=== PATIENT | male | born 1975 | race Hispanic/Latino ===

== ENCOUNTER 2018-06-22 12:11 | Inpatient (IN) | payer OTHER ==
[~2018-06-22] VITALS: Ht 185.4 cm; Wt 122.7 kg
[2018-06-22] MEDS ORDERED: SODIUM CHLORIDE 0.9% 1000ML 1,000 ML IV STA ×2 (12:50→13:59)
[2018-06-22] MEDS ORDERED: LABETALOL HCL 5 MG/ML 20ML VIAL IV STA (12:50)
[2018-06-22 13:34] LABS: BASOPHILS % 0.3 % (0.0-1.0); EOSINOPHILS % 0.2 % (0.0-6.0); HEMATOCRIT 60.7 % (38.2-49.6); HEMOGLOBIN 20.9 g/dL (14.0-18.0); LYMPHOCYTES # (AUTO) 1.7 (1.0-3.2); MEAN CORPUSCULAR HEMOGLOBIN 33.3 pg (28-32); MEAN CORPUSCULAR HGB CONC 34.4 g/dL (31-35); MEAN CORPUSCULAR VOLUME 96.8 fL (81-99); MONOCYTES # (AUTO) 0.8 (0.2-0.8); MONOCYTES % 6.1 % (4.4-11.3); NEUTROPHILS # (AUTO) 9.7 (2.1-6.9); NEUTROPHILS % 78.8 % (38.7-80.0); PLATELET COUNT 146 x10e3/uL (140-360); RED BLOOD COUNT 6.27 x10e6/uL (4.3-5.7); RED CELL DISTRIBUTION WIDTH 12.6 % (11.7-14.4)
[2018-06-22 13:34] LABS: CLARITY,URINE SL CLOUDY (CLEAR); COLOR,URINE STRAW (YELLOW); LEUKOCYTE ESTERASE ,URINE NEGATIVE (NEGATIVE)
[2018-06-22 13:35] LABS: BILIRUBIN,URINE 1+ (NEGATIVE); KETONES,URINE TRACE (NEGATIVE); NITRITE,URINE NEGATIVE (NEGATIVE); PROTEIN,URINE DIPSTICK 1+ (NEGATIVE); URINE UROBILINOGEN 0.2 mg/dL (0.2 - 1)
[2018-06-22 13:40] LABS: PARTIAL THROMBOPLASTIN TIME 30.1 seconds (23.8-35.5)
[2018-06-22 13:44] LABS: INR 1.01; PROTHROMBIN TIME 13.8 seconds (11.9-14.5)
[2018-06-22 13:45] LABS: AMORPHOUS SEDIMENT,URINE MODERATE (FEW); BACTERIA,URINE MODERATE /HPF; EPITHELIAL CELLS,URINE FEW /LPF; MUCUS,URINE MODERATE (RARE)
[2018-06-22 13:51] LABS: ALANINE AMINOTRANSFERASE 31 IU/L (0-55); ALBUMIN 4.5 g/dL (3.5-5.0); ALKALINE PHOSPHATASE 89 IU/L (40-150); BLOOD UREA NITROGEN 7 mg/dL (7-26); BUN/CREATININE RATIO 5 (6-25); CALCIUM 10.5 mg/dL (8.4-10.2); CARBON DIOXIDE 22 mmol/L (22-29); CHLORIDE 101 mmol/L (98-107); CREATINE KINASE 71 IU/L (30-200); EST GLOMERULAR FILTRATION RATE 52 ML/MIN (60-); GLUCOSE 175 mg/dL (74-118); MAGNESIUM 1.9 MG/DL (1.3-2.1); SODIUM 138 mmol/L (136-145)
[2018-06-22] MEDS: ENOXAPARIN SODIUM INJ 100 MG/ML SYR SC SCH ×2 (15:01→20:30)
--- NOTE | 2018-06-22 15:24 | Diagnostic Imaging Report ---
EXAMINATION: CHEST SINGLE (PORTABLE) INDICATION: Left lower extremity swelling. COMPARISON: None FINDINGS: TUBES and LINES: None. LUNGS: Lungs are moderately inflated. Lungs are clear. There is no evidence of pneumonia or pulmonary edema. PLEURA: No pleural effusion or pneumothorax. HEART AND MEDIASTINUM: The cardiomediastinal silhouette is unremarkable. BONES AND SOFT TISSUES: No acute osseous abnormality. UPPER ABDOMEN: No free air under the diaphragm. IMPRESSION: No acute radiographic abnormality. Signed by: Dr. Seema Jarrett MD on 06/22/2018 3:21 PM
[2018-06-22] MEDS ORDERED: SODIUM CHLORIDE 0.9% 50ML 50 ML ONE (15:48)
[2018-06-22] MEDS ORDERED: IOPAMIDOL 370 MG/ML 200 ML INFUS..BTL INJ ONE (15:48)
[2018-06-22 15:52] LABS: FERRITIN 147.78 ng/mL (21.81-274.66)
--- OUTSIDE RECORDS SUMMARY | 2018-06-22 15:56 | XMS REPORT ---
Author [facility] Address Unknown Phone Unavailable Care Team Providers Care D[employer] Worker Name Role Phone Greg LANDA Unavailable Unavailable Problems This patient has no known problems. Allergies, Adverse Reactions, Alerts This patient has no known allergies or adverse reactions. Medications This patient has no known medications. Results Test Description Test Time Test Comments Text Results Atomic Results Result Comments CHEST SINGLE (PORTABLE) 2018-06-22 15:18:00 [place] [address] Patient Name: CARLTON FLORES MR #: [id number] : 1975 Age/Sex: 43/M Req #: [id number] Adm Physician: Ordered by: ADAM LANDA MD Report #: [id number] Location: ER Room/Bed: Procedure: [id number] DX/CHEST SINGLE (PORTABLE) Exam Date: 06/22/18 Exam Time: 1445 REPORT STATUS: Signed EXAMINATION: CHEST SINGLE (PORTABLE) INDIC ATION: Left lower extremity swelling. COMPARISON: None FINDINGS: TUBES and LINES: None. LUNGS: Lungs are moderately inflated. Lungs are clear. There is no evidence of pneumonia or pulmonary edema. PLEURA: No pleural effusion or pneumothorax. HEART AND MEDIASTINUM: The cardiomediastinal silhouette is unremarkable. BONES AND SOFT TISSUES: No acute osseous abnormality. UPPER ABDOMEN: No free air under the diaphragm. IMPRESSION: No acute radiographic abnormality. Signed by: Dr. Tashi Walker MD on 06/22/2018 3:21 PM Dictated By: TASHI WALKER MD [id number] Transcribed By: MICHELLE on 06/22/18 1521 COPY TO: ADAM LANDA MD
--- NOTE | 2018-06-22 15:58 | NUR ---
DR JARAMILLO IN ROOM WITH PT
[2018-06-22] MEDS: SODIUM CHLORIDE 0.9% 1000ML 1,000 ML IV SCH (16:17)
[2018-06-22] MEDS: MORPHINE SULFATE INJ 4 MG/ML INJ 1ML IV PRN (16:45)
[2018-06-22] MEDS: ONDANSETRON HCL INJ 2MG/ML 2ML 2 MG/ML VIAL IV PRN (16:45)
--- NOTE | 2018-06-22 16:59 | Diagnostic Imaging Report ---
EXAM: CT Chest WITH contrast- Pulmonary Embolism Protocol INDICATION: Swollen leg. COMPARISON: Chest radiograph 06/22/2018 TECHNIQUE: Chest was scanned utilizing a multidetector helical scanner from the lung apex through the level of the diaphragm after administration of IV contrast. Thin section reconstructions were obtained with special concentration on the pulmonary arteries. Coronal and sagittal reformations were obtained. Pulmonary embolism protocol was performed. IV CONTRAST: 100 cc of Isovue 370 RADIATION DOSE: Total DLP: 608.6 mGy*cm Dose modulation, iterative reconstruction, and/or weight based adjustment of the mA/kV was utilized to reduce the radiation dose to as low as reasonably achievable. COMPLICATIONS: None FINDINGS: LINES/ TUBES: None. PULMONARY ARTERIES: No filling defect is identified within the pulmonary arteries to the segmental level. The subsegmental pulmonary arteries are not well opacified. Main pulmonary artery measures 2.9 cm in diameter. LUNGS AND AIRWAYS: The central airways are patent. There is a 6 mm solid nodule in the right upper lobe which is partially calcified. No evidence of pneumonia or pulmonary edema. There is patchy atelectasis in the bilateral lower lobes. Mild mosaic attenuation in the lower lobes which may reflect air trapping. PLEURA: The pleural spaces are clear. HEART AND MEDIASTINUM: The thyroid gland is normal. No mediastinal, hilar or axillary lymphadenopathy. The heart is normal in size.. There is no pericardial effusion. . UPPER ABDOMEN: Limited contrast-enhanced views of the upper abdomen are unremarkable. BONES: No acute osseous abnormality. No suspicious lytic or blastic lesions. SOFT TISSUES: Unremarkable. IMPRESSION: No evidence of pulmonary embolism to the level of the segmental pulmonary arteries. Signed by: Dr. Seema Jarrett MD on 06/22/2018 4:55 PM
[2018-06-22 17:15] VITALS: BP 164/106
[2018-06-22 17:30] VITALS: BP 164/106
--- NOTE | 2018-06-22 17:30 | NUR ---
Pt received resting in bed. Alert and oriented x4. Pt with left leg DVT. Left leg swollen and purple. Noted two abrasions to left leg. Oriented to staff and surroundings, encouraged to press call chairez if help needed. Pt verbalized understanding of teaching. Will monitor
[2018-06-22] MEDS ORDERED: PNEUMOCOCCAL VACCINE POLYVALENT 23 MCG/0.5 ML VIAL IM SCH (17:42)
[2018-06-22 17:46] VITALS: BP 164/106
--- NOTE | 2018-06-22 18:00 | NUR ---
SPOKE WITH DR WAITE RE DVT,ORDERS WRITTEN,BP ELEVATED BUT JUST TO MONITOR AT THIS TIME
[2018-06-22] MEDS ORDERED: HEPARIN 25,000 UNIT/D5W 250ML 250 ML IV SCH (18:15)
[2018-06-22] MEDS ORDERED: HEPARIN 25,000U/0.45% NS 250ML 1,500 UNIT in Premix Bag 250 ML IV SCH (18:15)
[2018-06-22] MEDS ORDERED: ACETAMINOPHEN 325 MG TAB PO PRN (18:15)
[2018-06-22] MEDS ORDERED: HYDRALAZINE HCL 20 MG/ML VIAL IV PRN (18:15)
[2018-06-22] MEDS ORDERED: HEPARIN SOD (PORCINE) 5,000 UNIT/ML VIAL IV ONE (18:30)
--- NOTE | 2018-06-22 19:00 | NUR ---
patient received awake, alert, lying quietly in bed. no c/o pain noted. ivf continue to infuse without difficulty. left leg lrg/swollen. pm assessment complete. patient instructed to call for assistance when needed.
[2018-06-22] MEDS: HEPARIN SOD (PORCINE) 5,000 UNIT/ML VIAL IV ONE (19:10)
--- NOTE | 2018-06-22 19:10 | NUR ---
heparin bolus 7,500 units ivp given and heparin drip initiated at 1500 units/hr. ptt ordered for 0300 per protocol.
--- NOTE | 2018-06-22 19:13 | NUR ---
SPOKE WITH DR WAITE RE LT LEG SWOLLEN WARM TO TOUCH,NO NEW ORDERS .HEPAIN DRIP STARTED. ORDERED
[2018-06-22 19:30] VITALS: BP 182/90
[2018-06-22 20:00] VITALS: BP 182/90
--- NOTE | 2018-06-22 20:57 | NUR ---
patient medicated with hydralazine 10 mg ivp for bp 182/90 at this time.
[2018-06-22 22:20] LABS: CREATINE KINASE 51 IU/L (30-200)
[2018-06-22] MEDS ORDERED: CLONIDINE HCL0.1 MG PO (22:34)
[2018-06-22] MEDS ORDERED: LOSARTAN POTASS25 MG PO (22:36)
[2018-06-22] MEDS ORDERED: BYSTOLIC10 MG PO (22:36)
[2018-06-22] MEDS ORDERED: LOSARTAN-HCTZ1 EACH (22:39)
[2018-06-22] MEDS ORDERED: SERTRALINE HCL25 MG PO (22:39)
[2018-06-23] VITALS (8 sets, daily range): BP systolic 130–176; BP diastolic 73–98
--- NOTE | 2018-06-23 | NUR ---
patient medicated with morphine 4 mg and zofran 4 mg ivp for c/o left leg pain 7/10 at this time.
[2018-06-23] MEDS: SODIUM CHLORIDE 0.9% 1000ML 1,000 ML IV SCH ×2 (00:02→08:05)
--- NOTE | 2018-06-23 00:53 | Consultation ---
DATE OF CONSULTATION: 06/22/[address] Jc for this consultation. HISTORY OF PRESENT ILLNESS: This is a 43-year-old gentleman with a past medical history includes hypertension, currently in hospital with worsening lower extremity pain and swelling. Symptoms started almost four days before admission. It was gradual in onset and has been constant. He also complaining of progressing of left lower extremity swelling. It was involving left thigh, knee, leg, left foot, and left ankle. The patient also had redness. No difficulty walking. No fever or chills reported. The patient denies any prior history of any blood clots. No family history of any hematological disorder. At admission, the patient had a workup done includes CBC, hemoglobin was 20 with hematocrit was 60. The patient's white blood cell was 12.3. Doppler was positive include left femoral, left iliac, popliteal, and posterior tibial vein acute deep vein thrombosis. The patient currently started on Lovenox and admitted to further treatment. CT chest was also ordered, report and procedure is pending. The patient denies any history of sleep apnea or any history of testosterone abuse. PAST MEDICAL HISTORY: Hypertension. ALLERGIES: NKDA. MEDICATION LIST: Reviewed. SOCIAL HISTORY: No current smoking, alcohol, or drugs. REVIEW OF SYSTEMS: A 12-point review as per HPI. FAMILY HISTORY: Noncontributory. PHYSICAL EXAMINATION: GENERAL: Alert, awake, communicative. HEENT: Normocephalic, atraumatic. Sclerae anicteric. Conjunctiva clear. NECK: Supple. CHEST: Clear to auscultation. CARDIOVASCULAR: Regular rate and rhythm. ABDOMEN: Soft and obese. EXTREMITIES: Left lower extremity swelling, tenderness, and redness. Pain is intact. LABS AND IMAGING: Reviewed as per the HPI. ASSESSMENT AND PLAN: The patient with history of hypertension, admitted with left lower extremity swelling, redness, tenderness, and dull achy pain. Workup is consistent with acute left lower extremity deep venous thrombosis. The patient also had elevated hemoglobin and hematocrit. Erythrocytosis. The patient has severe erythrocytosis. No history of hormonal use, sleep apnea, or smoking. Likely etiology of polycythemia. At a possibility of hemochromatosis. RECOMMENDATIONS: JAK2 mutation. Erythropoietin level. Hemochromatosis gene panel. The patient will benefit with palliative phlebotomy. Target hematocrit at 47. Target ferritin is 15. We will monitor blood count closely. Further recommendation and treatment as per workup. Acute lower extremity deep venous thrombosis. Severe in nature. Symptomatic. Already started on Lovenox. We will follow the patient in 24 hours. In case of no improvement, might consider IR intervention for possible thrombectomy. The patient will need anticoagulation for at least 6 months. Hypercoagulable work we already requested. Possible risk factor include erythrocytosis. Recommendation, phlebotomy treatment. Continue remaining care. We will monitor the patient very closely. MD LEVI Orosco/SHIRLEY /[id number]
--- NOTE | 2018-06-23 02:50 | NUR ---
0300 ptt drawn at this time per heparin protocol. awaiting results to adjust heparin drip.
--- NOTE | 2018-06-23 03:10 | NUR ---
ptt 132.4 heparin drip held x 60 minutes. rate to be decreased by 200 units/hr and next ptt in 6 hrs (0900) per heparin protocol.
[2018-06-23] MEDS ORDERED: HEPARIN 25,000U/0.45% NS 250ML 1,500 UNIT in Premix Bag 250 ML IV SCH ×3 (04:00→22:53)
--- NOTE | 2018-06-23 04:10 | NUR ---
heparin drip decreased to 1300 units per hour per heparin protocol.
[2018-06-23 05:47] LABS: BASOPHILS % 0.3 % (0.0-1.0); EOSINOPHILS # (AUTO) 0.1 (0.0-0.4); EOSINOPHILS % 0.8 % (0.0-6.0); HEMATOCRIT 52.6 % (38.2-49.6); HEMOGLOBIN 18.8 g/dL (14.0-18.0); LYMPHOCYTES % 16.5 % (18.0-39.1); MEAN CORPUSCULAR HEMOGLOBIN 34.8 pg (28-32); MEAN CORPUSCULAR HGB CONC 35.7 g/dL (31-35); MEAN CORPUSCULAR VOLUME 97.2 fL (81-99); MONOCYTES # (AUTO) 0.8 (0.2-0.8); MONOCYTES % 6.6 % (4.4-11.3); NEUTROPHILS % 75.4 % (38.7-80.0); PLATELET COUNT 101 x10e3/uL (140-360); RED BLOOD COUNT 5.41 x10e6/uL (4.3-5.7)
[2018-06-23 06:09] LABS: ALANINE AMINOTRANSFERASE 21 IU/L (0-55); ALBUMIN 3.2 g/dL (3.5-5.0); ALBUMIN/GLOBULIN RATIO 0.9 (0.8-2.0); ALKALINE PHOSPHATASE 64 IU/L (40-150); ANION GAP 13.5 mmol/L (8-16); BLOOD UREA NITROGEN 7 mg/dL (7-26); BUN/CREATININE RATIO 8 (6-25); CALCIUM 8.7 mg/dL (8.4-10.2); CARBON DIOXIDE 22 mmol/L (22-29); CHLORIDE 103 mmol/L (98-107); CREATININE, SERUM 0.91 mg/dL (0.72-1.25); EST GLOMERULAR FILTRATION RATE > 60 ML/MIN (60-); GLUCOSE 123 mg/dL (74-118); POTASSIUM 3.5 mmol/L (3.5-5.1); SODIUM 135 mmol/L (136-145)
[2018-06-23 06:19] LABS: MAGNESIUM 1.7 MG/DL (1.3-2.1)
[2018-06-23 06:31] LABS: CREATINE KINASE 60 IU/L (30-200)
[2018-06-23 06:57] LABS: B-TYPE NATRIURETIC PEPTIDE2 38.8 pg/mL (0-100)
[2018-06-23 07:10] LABS: FREE T4 (FREE THYROXINE) 0.9 ng/dL (0.9-1.8); THYROID STIMULATING HORMONE 3.095 uIU/mL (0.350-4.940)
--- NOTE | 2018-06-23 07:21 | NUR ---
PATIENT IN BED RESTING WITH NO S/S OF DISTRESS. REDNESS AND SWELLING TO LEFT FOOT, OLD SKIN TEAR TO RIGHT FOOT. HEPARIN DRIP IN PROGRESS. BED IN LOWER POSITION, CALL LIGHT AT REACH.
[2018-06-23] MEDS: FAMOTIDINE 20 MG TAB PO SCH ×2 (07:30→16:31)
[2018-06-23] MEDS: ASPIRIN 81 MG ENTERIC COATED PO SCH (09:26)
[2018-06-23] MEDS: NEBIVOLOL 10 MG TAB PO SCH (09:26)
[2018-06-23] MEDS: HYDROCHLOROTHIAZIDE 25 MG TAB PO SCH (09:27)
[2018-06-23] MEDS: SERTRALINE HCL 50 MG TAB PO SCH (09:27)
[2018-06-23] MEDS: LOSARTAN POTASSIUM 100 MG TAB PO SCH (09:27)
--- NOTE | 2018-06-23 09:29 | NUR ---
BED SIDE THERAPEUTIC PHLEBOTOMY DONE. V/S ASSESSED EVERY 5 MINUTES. PATIENT TOLERATED PROCEDURE WELL, REPOSITIONED IN BED WITH CALL LIGHT AT REACH.
--- NOTE | 2018-06-23 11:11 | Progress Note ---
DATE: 06/23/2018 SUBJECTIVE: The patient was seen and examined today. The patient appeared comfortable. He has still persistent left lower extremity swelling involving from thigh all the way to ankle, a little soft, able to move toes. OBJECTIVE: GENERAL: Alert, awake, communicative. HEENT: Normocephalic, atraumatic. Sclerae pale. Conjunctivae clear. NECK: Supple. CHEST: Decreased breath sounds in the bases. CARDIOVASCULAR: Regular rate and rhythm. ABDOMEN: Soft. EXTREMITIES: Left lower extremity swelling. ASSESSMENT AND PLAN: The patient with history of hypertension, admitted with erythrocytosis and left lower extremity deep venous thrombosis involved from iliac to posterior tibial. Discussed with primary care team. Might consider Interventional Radiology evaluation for possible thrombectomy. The patient currently remained on heparin. Recommendation to start and switch to all anticoagulation after procedure. The patient's hypercoagulable workup is pending. Continue to treat the patient for and we will follow. Erythrocytosis. Workup for polycythemia is pending. The patient is supposed to get phlebotomy treatment this morning. Monitor CBC closely. Further recommendation and treatment as per workup. We will follow. MD LEVI Orosco/SHIRLEY /[id number]
[2018-06-23 13:04] LABS: CREATINE KINASE 62 IU/L (30-200)
[2018-06-23] MEDS: ONDANSETRON HCL INJ 2MG/ML 2ML 2 MG/ML VIAL IV PRN ×3 (14:35→20:30)
[2018-06-23] MEDS: MORPHINE SULFATE INJ 4 MG/ML INJ 1ML IV PRN ×3 (14:35→20:30)
--- NOTE | 2018-06-23 16:00 | NUR ---
PATIENT PTT RESULT WAS 45.6. HEPARIN DRIP INCREASED BY 100UNITS/HR. PATIENT IN BED WATCHING TV, NO COMPLAIN VOICED. BED IN LOWER POSITION, CALL LIGHT AT REACH
--- NOTE | 2018-06-23 19:45 | NUR ---
Received patient in report. Patient is resting in bed at this time. Heparin running at 14 mL/hr to R AC 18g. Asymptomatic, intact, and patent. L AC 18g, asymptomatic and intact. Patient report mild pain in L lower leg. No S&S of distress noted. Bed locked in lowest position, side rails up x2, call light in reach.
[2018-06-23] MEDS: CLONIDINE HCL 0.1 MG TAB PO SCH (20:34)
--- NOTE | 2018-06-23 21:00 | NUR ---
PTT drawn but needed to be redrawn due to tubes.
--- NOTE | 2018-06-23 21:59 | Consultation ---
DATE OF CONSULTATION: Cardiology Consultation REASON FOR CONSULTATION: Deep venous thrombosis. HISTORY OF PRESENT ILLNESS: This is a 43-year-old man with a history of hypertension, who presented to the emergency department with progressively worsening left lower extremity pain. The patient states that his pain was gradually onset progressively worsened and in an ascending fashion with pain and swelling. No family history of deep venous thrombosis. He has had no prior deep venous thrombosis as well. He has not been on any long trips nor does he have a history of recent surgeries or cancers. He states that he is active, however, sits at work. REVIEW OF SYSTEMS: A 12-point review of system was conducted, is negative otherwise as stated above in the HPI. PAST MEDICAL HISTORY: Hypertension. PAST FAMILY HISTORY: No premature coronary artery disease or deep venous thrombosis. ALLERGIES: NO KNOWN DRUG ALLERGIES. MEDICATIONS: See medication reconciliation form. SOCIAL HISTORY: No illicit drug, alcohol, or tobacco use. PHYSICAL EXAMINATION: VITAL SIGNS: Temperature is 98.7, heart rate 75, respirations 18, blood pressure is 130/88, and oxygen saturation 95% on room air. GENERAL: Well appearing, well built, in no apparent distress. Alert and oriented x3. HEENT: Head is normocephalic and atraumatic. Eyes, the extraocular muscles are intact. Conjunctivae clear. NECK: No JVD. No bruits. CARDIOVASCULAR: Regular rate and rhythm. LUNGS: Clear to auscultation bilaterally. No wheezing or rales. ABDOMEN: Soft, nontender, and nondistended. Normoactive bowel sounds. EXTREMITIES: No clubbing or cyanosis. There is a significant asymmetric left lower extremity edema. NEUROLOGIC: No focal deficits noted. LABORATORY DATA: Reviewed. Hemoglobin is 20. Creatinine is 0.9. The left lower extremity shows thrombosis in the left common femoral vein extending into the left popliteal vein. IMPRESSION: 1. Deep venous thrombosis. 2. Hypertension. 3. Erythrocytosis. RECOMMENDATIONS: Continue heparin for IV infusion. The patient has no rest pain and states that his discoloration is chronic. The patient likely would need a catheter based approach. However, continue heparin for now. He can have venography and catheter directed thrombolysis either tomorrow versus Tuesday. Barrie Blackwell DO BM/MODL /[id number]
[2018-06-23] MEDS: HEPARIN 25,000U/0.45% NS 250ML 1,500 UNIT in Premix Bag 250 ML IV SCH (22:55)
--- NOTE | 2018-06-23 22:55 | NUR ---
PTT noted to be 48.4. Increased heparin by 100 units to 1500 units/hr or 15 mL/hr. Draw next PTT at 0400.
[2018-06-24] VITALS (9 sets, daily range): BP systolic 106–133; BP diastolic 67–84
[2018-06-24 04:54] LABS: BASOPHILS # (AUTO) 0.1 (0.0-0.1); BASOPHILS % 0.6 % (0.0-1.0); EOSINOPHILS # (AUTO) 0.3 (0.0-0.4); EOSINOPHILS % 2.9 % (0.0-6.0); HEMATOCRIT 48.8 % (38.2-49.6); HEMOGLOBIN 17.3 g/dL (14.0-18.0); LYMPHOCYTES # (AUTO) 2.1 (1.0-3.2); LYMPHOCYTES % 24.5 % (18.0-39.1); MEAN CORPUSCULAR HEMOGLOBIN 34.5 pg (28-32); MEAN CORPUSCULAR HGB CONC 35.5 g/dL (31-35); MEAN CORPUSCULAR VOLUME 97.2 fL (81-99); MONOCYTES # (AUTO) 0.7 (0.2-0.8); MONOCYTES % 7.5 % (4.4-11.3); NEUTROPHILS # (AUTO) 5.6 (2.1-6.9); PLATELET COUNT 97 x10e3/uL (140-360); RED BLOOD COUNT 5.02 x10e6/uL (4.3-5.7); RED CELL DISTRIBUTION WIDTH 12.8 % (11.7-14.4)
[2018-06-24] MEDS: ONDANSETRON HCL INJ 2MG/ML 2ML 2 MG/ML VIAL IV PRN ×4 (04:55→20:44)
[2018-06-24] MEDS: MORPHINE SULFATE INJ 4 MG/ML INJ 1ML IV PRN ×4 (04:55→20:44)
[2018-06-24 05:12] LABS: ANION GAP 10.4 mmol/L (8-16); BLOOD UREA NITROGEN 9 mg/dL (7-26); BUN/CREATININE RATIO 10 (6-25); CALCIUM 8.5 mg/dL (8.4-10.2); CARBON DIOXIDE 27 mmol/L (22-29); CHLORIDE 102 mmol/L (98-107); EST GLOMERULAR FILTRATION RATE > 60 ML/MIN (60-); GLUCOSE 114 mg/dL (74-118); MAGNESIUM 1.9 MG/DL (1.3-2.1); POTASSIUM 3.4 mmol/L (3.5-5.1); SODIUM 136 mmol/L (136-145)
--- NOTE | 2018-06-24 05:52 | NUR ---
ptt drawn at 0430 but not resulted til 0552. ptt 55.9 at this time. no change in heparin infusion rate. next ptt ordered for 1030 per heparin protocol.
[2018-06-24] MEDS ORDERED: POTASSIUM CHLORIDE 20 MEQ TAB CR PO STA (07:13)
--- NOTE | 2018-06-24 07:19 | NUR ---
PATIENT IN BED RESTING WITH NO RESPIRATORY DISTRESS. REQUESTED AND RECEIVED AN EXTRA PILLOW. LEFT LEG RED AND SWOLLEN. BED IN LOWER POSITION, CALL LIGHT AT REACH.
[2018-06-24] MEDS: FAMOTIDINE 20 MG TAB PO SCH ×2 (07:30→16:30)
[2018-06-24] MEDS: ASPIRIN 81 MG ENTERIC COATED PO SCH (09:15)
[2018-06-24] MEDS: HYDROCHLOROTHIAZIDE 25 MG TAB PO SCH (09:16)
[2018-06-24] MEDS: SERTRALINE HCL 50 MG TAB PO SCH (09:16)
[2018-06-24] MEDS: LOSARTAN POTASSIUM 100 MG TAB PO SCH (09:16)
[2018-06-24] MEDS: NEBIVOLOL 10 MG TAB PO SCH (09:16)
--- NOTE | 2018-06-24 11:30 | NUR ---
PTT RESULT WITHIN NORMAL RANGE X 2. WILL BE CHECKED IN THE MORNING.
--- NOTE | 2018-06-24 13:27 | Progress Note ---
DATE: SUBJECTIVE: The patient was seen and examined today. The patient appeared better. Patient had phlebotomy yesterday, hematocrit went to 48. Workup is pending. OBJECTIVE: GENERAL: Alert, awake, communicative. HEENT: Normocephalic, atraumatic. Sclerae pale. Conjunctivae clear. NECK: Supple. CHEST: Decreased breath sounds in the bases. ABDOMEN: Soft. EXTREMITIES: Left lower extremity positive edema. LABS AND IMAGING: Reviewed. ASSESSMENT/PLAN: Patient with history of newly diagnosed left lower extremity edema and thrombosis. Extensive thrombosis following Interventional Radiology is scheduled for thrombectomy. Given continue anticoagulation. Patient is currently on heparin. We will switch to all other anticoagulation after procedure. We will continue remaining cannulae and will monitor patient closely. Erythrocytosis. Workup is pending. Extreme phlebotomy. We will continue to monitor CBC closely. Further recommendations and treatment as per workup. We will follow the patient closely. MD LEVI Orosco/SHIRLEY /[id number]
--- NOTE | 2018-06-24 13:32 | Progress Note ---
DATE: Cardiology Progress Note. SUBJECTIVE: The patient denies any chest pain or shortness of breath. Does endorse left lower extremity swelling, however, that is improving. Denies any pain in the leg. CARDIOVASCULAR MEDICATIONS: Heparin IV drip, aspirin 81 mg p.o. daily, Bystolic 10 mg p.o. daily, losartan 50 mg p.o. daily, hydrochlorothiazide 12.5 mg p.o. daily, hydralazine 10 mg q.4 hours p.r.n. for hypertension, clonidine 0.1 mg p.o. at bedtime. OBJECTIVE: VITAL SIGNS: Temperature 97.5, pulse 70, respiratory rate 17, blood pressure 121/76, oxygen saturation 97% on room air. GENERAL: Alert and oriented x3, resting comfortably in bed, does not appear to be in any acute distress. LUNGS: Clear to auscultation throughout. No wheezing. No rhonchi or crackles. NECK: Supple. No JVD noted. ABDOMEN: Soft, nontender. Normoactive bowel sounds. EXTREMITIES: Right lower extremity, 2+ pedal pulses, no edema. Left lower extremity, 3+ pitting edema, 2+ pedal pulses. Left lower extremity elevated. LABORATORY DATA: WBC 8.68, hemoglobin 17.3, hematocrit 40.3, platelets 97. Sodium 136, potassium 3.4, glucose 114, creatinine 0.90, GFR greater than 60. PTT 58.4. TELEMETRY: Sinus rhythm. IMPRESSION: 1. Deep venous thrombus. 2. Hypertension. 3. Erythrocytosis. RECOMMENDATIONS: Continue heparin IV infusion at this time. The patient is on bedrest. Continue to monitor his symptoms of acute DVT. The patient will likely need a catheter based approach, however, we will continue to monitor for now or make a decision about need for thrombolysis and venogram on Tuesday. Dictated by Lianne Polanco, RIBBON WEAVER MD SNEHAL Sams/SHIRLEY /[id number]
--- NOTE | 2018-06-24 16:00 | NUR ---
PATIENT C/O PAIN TO LEFT FOOT. PAIN MEDICATION GIVEN ORDERED. PATIENT STATED THAT HE IS FEELING BETTER AT THIS TIME. CALL LIGHT AT REACH.
--- NOTE | 2018-06-24 16:20 | NUR ---
CASE MANAGEMENT INITIAL ASSESSMENT Sales Professional Bilingual to bedside to discuss plan of care with patient/family. CM/SW role and care transitions discussed. Anticipated discharge plan discussed along with duration of care. CM/SW discussed patients right to make decisions in care. CM/SW work hours given. Patient lives: W/ FAMILY Admit/Transfer: ER Hospital/ER visits since last admit:0 POA/Emergency contact: MOTHER: SOLOMON FLORES [phone] Current/Previous Home Health: NO PCP/Follow-up Care: NONE Current/Previous DME: NONE Medications (referring to index hospitalization or the first time you were in the hospital) a. Were changes made in your medications when you were in the hospital on [date of index hospitalization]? Yes No Not sure Explain: N/A Note: If no or not sure, please skip to question d b. Did you understand the changes? Yes No Explain:N/A c. Were you able to obtain your new medications right away? Yes No n/a SNF only N/A Explain: d. Were you able to take your medications like the doctor wanted you to? Yes No Explain:N/A e. Did the hospital give you an accurate, easy to understand list of medications when you left? Yes No n/a SNF only Explain:N/A Scale of 1-10 how comfortable does patient feel with disease management in outpatient settin Other Services: 0 Employment Status: EMPLOYED WITH [employer] Areas of Concerns: 0 Referral Needs: 0 Education Needs: PREVENTION OF DVT IMM/FENG given and signed (if applicable): N/A Goal for discharge: RETURN HOME AND BACK TO WORK CM/SW left business card at the bedside with contact information. Name and number was also written on the patients whiteboard. Patient verbalized understanding of discussion. CM will follow-up with ongoing discharge and transition of care needs.
--- NOTE | 2018-06-24 19:00 | NUR ---
report received. walking rounds made. patient received awake, alert, lying quietly in bed. no c/o pain noted. iv heparin infusing without difficulty. ptt therapeutic and next ptt in am. left leg remains swollen but patient states, " I'm starting to feel my leg more now. " pm assessment complete. patient instructed to call for assistance when needed.
[2018-06-24] MEDS: CLONIDINE HCL 0.1 MG TAB PO SCH (20:44)
--- NOTE | 2018-06-24 20:44 | NUR ---
patient medicated with morphine 4 mg and zofran 4 mg ivp for c/o left leg pain 7/10 at this time.
[2018-06-24] MEDS: HEPARIN 25,000U/0.45% NS 250ML 1,500 UNIT in Premix Bag 250 ML IV SCH (23:30)
[2018-06-25] VITALS (7 sets, daily range): BP systolic 96–164; BP diastolic 51–97
[2018-06-25] MEDS: MORPHINE SULFATE INJ 4 MG/ML INJ 1ML IV PRN ×5 (02:35→21:55)
[2018-06-25] MEDS: ONDANSETRON HCL INJ 2MG/ML 2ML 2 MG/ML VIAL IV PRN ×4 (02:35→17:45)
--- NOTE | 2018-06-25 02:35 | NUR ---
patient medicated with morphine 4 mg and zofran 4 mg ivp for c/o left leg pain 6/10 at this time.
--- NOTE | 2018-06-25 04:00 | NUR ---
ordered 0300 labs with ptt drawn at this and sent to lab.
[2018-06-25 04:31] LABS: BASOPHILS % 0.4 % (0.0-1.0); EOSINOPHILS # (AUTO) 0.3 (0.0-0.4); EOSINOPHILS % 3.4 % (0.0-6.0); HEMATOCRIT 48.5 % (38.2-49.6); HEMOGLOBIN 17.2 g/dL (14.0-18.0); MEAN CORPUSCULAR HEMOGLOBIN 34.3 pg (28-32); MEAN CORPUSCULAR HGB CONC 35.5 g/dL (31-35); MEAN CORPUSCULAR VOLUME 96.8 fL (81-99); MONOCYTES # (AUTO) 0.6 (0.2-0.8); MONOCYTES % 7.6 % (4.4-11.3); NEUTROPHILS # (AUTO) 4.5 (2.1-6.9); NEUTROPHILS % 60.9 % (38.7-80.0); PLATELET COUNT 120 x10e3/uL (140-360); RED BLOOD COUNT 5.01 x10e6/uL (4.3-5.7); RED CELL DISTRIBUTION WIDTH 12.7 % (11.7-14.4)
[2018-06-25 05:00] LABS: ANION GAP 12.4 mmol/L (8-16); BLOOD UREA NITROGEN 8 mg/dL (7-26); BUN/CREATININE RATIO 10 (6-25); CALCIUM 8.7 mg/dL (8.4-10.2); CARBON DIOXIDE 27 mmol/L (22-29); CHLORIDE 100 mmol/L (98-107); CREATININE, SERUM 0.84 mg/dL (0.72-1.25); EST GLOMERULAR FILTRATION RATE > 60 ML/MIN (60-); GLUCOSE 111 mg/dL (74-118); MAGNESIUM 1.9 MG/DL (1.3-2.1); POTASSIUM 3.4 mmol/L (3.5-5.1); SODIUM 136 mmol/L (136-145)
--- NOTE | 2018-06-25 05:00 | NUR ---
0400 ptt resulted at this time. ptt 51.6 no change in heparin infusion rate and next ptt in am at 0500 per heparin protocol.
[2018-06-25] MEDS ORDERED: POTASSIUM CHLORIDE 20 MEQ TAB CR PO STA (06:56)
--- NOTE | 2018-06-25 07:20 | NUR ---
PATIENT IN BED RESTING WITH NO DISTRESS, C/O PAIN TO LEFT FOOT. PAIN MEDICATION GIVEN ORDERED. BED IN LOWER POSITION, CALL LIGHT AT REACH. WILL CLOSELY MONITOR.
[2018-06-25] MEDS: FAMOTIDINE 20 MG TAB PO SCH ×2 (07:30→16:46)
[2018-06-25] MEDS: NEBIVOLOL 10 MG TAB PO SCH (09:22)
[2018-06-25] MEDS: ASPIRIN 81 MG ENTERIC COATED PO SCH (09:22)
[2018-06-25] MEDS: LOSARTAN POTASSIUM 100 MG TAB PO SCH (09:22)
[2018-06-25] MEDS: SERTRALINE HCL 50 MG TAB PO SCH (09:22)
[2018-06-25] MEDS: HYDROCHLOROTHIAZIDE 25 MG TAB PO SCH (09:22)
--- NOTE | 2018-06-25 11:10 | NUR ---
WALKING ROUND MADE. PATIENT URINAL EMPTIED WITH 350 CC OF YELLOW URINE. ALL PERSONAL ITEMS CLOSE TO PATIENT. CALL LIGHT AT REACH.
--- NOTE | 2018-06-25 15:41 | NUR ---
DR REYES SCREEN PRINTING SUPERVISOR IN TO SEE PATIENT. ORDER RECEIVED TO WRAP LEFT LEG FROM BOTTOM TO TOP AND PATIENT CAN AMBULATE GRADUALLY. LEG WRAPPED, PATIENT OUT OF BED TO CHAIR. CALL LIGHT AT REACH. WILL CLOSELY MONITOR, CALL LIGHT AT REACH.
[2018-06-25] MEDS: RIVAROXABAN 20 MG TABLET PO SCH (17:14)
--- NOTE | 2018-06-25 18:12 | Progress Note ---
DATE: Cardiology Progress Note SUBJECTIVE: The patient continues to complain of some swelling in the left lower extremity, however, denies any pain or any other complaints. OBJECTIVE: VITAL SIGNS: Temperature 98.5, pulse 71, respiratory rate 18, blood pressure 129/97, oxygen saturation 96% on room air. GENERAL: Alert and oriented x3. Resting comfortably in bed, does not appear to be in any acute distress. LUNGS: Clear to auscultation throughout. No wheezing. No rhonchi or crackles. CARDIOVASCULAR: Regular rate and rhythm. Normal S1, S2. No murmurs, no gallops noted. ABDOMEN: Soft, nontender. EXTREMITIES: Left lower extremity 2+ nonpitting edema. 2+ pedal pulses. CARDIOVASCULAR MEDICATIONS: Losartan 50 mg p.o. daily, hydrochlorothiazide 12.5 mg p.o. daily, Bystolic 10 mg p.o. daily, aspirin 81 p.o. daily, heparin drip, hydralazine 10 mg q.4 hours p.r.n. high blood pressure, clonidine 0.1 mg p.o. at bedtime. LABORATORY DATA: WBC 7.37, hemoglobin 17.2, hematocrit 48.8, platelets 120. Sodium 136, potassium 3.4, BUN 8, creatinine 0.84, PTT 51.6. IMPRESSION: 1. Peripheral arterial disease is noted by Doppler. 2. Acute deep vein thrombosis in the left common femoral vein extending to the left femoral vein and popliteal vein. 3. Hypertension. 4. Erythrocytosis. RECOMMENDATION: Okay to DC heparin drip, transitioned to Xarelto p.o. Ambulate this patient, compress left lower extremity. Continue DVT care. This patient will need anticoagulation for lifetime given hypercoagulable state. We will continue to monitor this patient very closely. No need for thrombolysis of venogram at this time. Possible discharge tomorrow. We will continue to follow this patient very closely. Dictated by Lianne Polanco NP MD SNEHAL Sams/SHIRLEY /[id number]
--- NOTE | 2018-06-25 19:09 | NUR ---
PT IS RESTING IN BED. NO RESPIRATORY DISTRESS NOTED. BED IN THE LOWEST POSITION, LOCKED, AND CALL LIGHT WITHIN REACH. WILL CONTINUE TO MONITOR.
[2018-06-25] MEDS: CLONIDINE HCL 0.1 MG TAB PO SCH (20:59)
[2018-06-26] VITALS (7 sets, daily range): BP systolic 105–160; BP diastolic 68–97
[2018-06-26] MEDS: MORPHINE SULFATE INJ 4 MG/ML INJ 1ML IV PRN ×5 (04:14→22:50)
[2018-06-26 06:39] LABS: BASOPHILS % 0.4 % (0.0-1.0); EOSINOPHILS # (AUTO) 0.2 (0.0-0.4); EOSINOPHILS % 2.5 % (0.0-6.0); HEMATOCRIT 48.8 % (38.2-49.6); HEMOGLOBIN 17.2 g/dL (14.0-18.0); LYMPHOCYTES # (AUTO) 1.5 (1.0-3.2); LYMPHOCYTES % 22.1 % (18.0-39.1); MEAN CORPUSCULAR HEMOGLOBIN 34.1 pg (28-32); MEAN CORPUSCULAR HGB CONC 35.2 g/dL (31-35); MEAN CORPUSCULAR VOLUME 96.6 fL (81-99); MONOCYTES # (AUTO) 0.6 (0.2-0.8); MONOCYTES % 8.6 % (4.4-11.3); NEUTROPHILS # (AUTO) 4.4 (2.1-6.9); NEUTROPHILS % 65.7 % (38.7-80.0); PLATELET COUNT 141 x10e3/uL (140-360); RED BLOOD COUNT 5.05 x10e6/uL (4.3-5.7); RED CELL DISTRIBUTION WIDTH 12.7 % (11.7-14.4)
[2018-06-26 06:48] LABS: ANION GAP 12.6 mmol/L (8-16); BLOOD UREA NITROGEN 11 mg/dL (7-26); BUN/CREATININE RATIO 12 (6-25); CALCIUM 9.2 mg/dL (8.4-10.2); CARBON DIOXIDE 27 mmol/L (22-29); CHLORIDE 98 mmol/L (98-107); EST GLOMERULAR FILTRATION RATE > 60 ML/MIN (60-); GLUCOSE 108 mg/dL (74-118); POTASSIUM 3.6 mmol/L (3.5-5.1); SODIUM 134 mmol/L (136-145)
[2018-06-26] MEDS: NEBIVOLOL 10 MG TAB PO SCH (08:37)
[2018-06-26] MEDS: ASPIRIN 81 MG ENTERIC COATED PO SCH (08:37)
[2018-06-26] MEDS: FAMOTIDINE 20 MG TAB PO SCH ×3 (08:37→22:50)
[2018-06-26] MEDS: SERTRALINE HCL 50 MG TAB PO SCH (08:37)
[2018-06-26] MEDS: HYDROCHLOROTHIAZIDE 25 MG TAB PO SCH (08:40)
[2018-06-26] MEDS: LOSARTAN POTASSIUM 100 MG TAB PO SCH (08:42)
--- NOTE | 2018-06-26 10:30 | NUR ---
Spoke with Dr. Blackwell at this time and he states he wants to keep patient one more day to eval if he might need venogram tomorrow. Received orders to keep pt NPO after midnight but received no orders to have pt sign informed consent just yet. Pt is aware of possible procedure.
--- NOTE | 2018-06-26 11:41 | Progress Note ---
DATE: 06/26/2018 SUBJECTIVE: The patient was seen and examined today. The patient appeared better. The patient will follow with vascular surgeon, not a candidate for any thrombectomy. Currently started on Xarelto, tolerating very well. OBJECTIVE: GENERAL: Alert, awake, communicative. HEENT: Normocephalic, atraumatic. Sclerae pale. Conjunctivae clear. NECK: Supple. CHEST: Decreased breath sounds in the bases. CARDIOVASCULAR: Regular rate and rhythm. EXTREMITIES: 2+ edema on the left lower extremity. Leg imaging reviewed. ASSESSMENT AND PLAN: The patient with history of erythrocytosis, hypercoagulable disorder, unprovoked deep vein thrombosis, and extensive blood clot. He is started on Xarelto, tolerating well. Continue current care. Duration of treatment depend on the workup. Erythrocytosis workup is pending. Hematocrit is 48. Scheduled for the discharge. Follow as outpatient for further management. MD LEVI Orosco/SHIRLEY /[id number]
[2018-06-26] MEDS: RIVAROXABAN 20 MG TABLET PO SCH (16:46)
[2018-06-26] MEDS ORDERED: PNEUMOCOCCAL VACCINE POLYVALENT 23 MCG/0.5 ML VIAL IM SCH (17:00)
--- NOTE | 2018-06-26 19:36 | NUR ---
RECEIVED PT IN BED AOX3 RESPIRATIONS ARE EVEN AND UNLABORED LEFT FOOT CELLULITIS WRAP WITH EDUARDO WRAP OLD SKIN TEAR TO THE RT FOOT .DENIES PAIN CALL LIGHT WITH IN REACH .CONTINUE TO MONITOR
[2018-06-26] MEDS: CLONIDINE HCL 0.1 MG TAB PO SCH (21:06)
--- NOTE | 2018-06-26 22:08 | Progress Note ---
DATE: Cardiology Progress Note SUBJECTIVE: The patient reports significant left lower extremity swelling that has persisted with pain and swelling in the scrotum. PHYSICAL EXAMINATION: VITAL SIGNS: Temperature is 98.0, heart rate is 69, respirations are 20, blood pressure is 118/85, and oxygen saturation is 95% on room air. GENERAL: Well appearing, well built, in no apparent distress. CARDIOVASCULAR: Regular rate and rhythm. LUNGS: Clear to auscultation. ABDOMEN: Soft, nontender, and nondistended. EXTREMITIES: No clubbing, cyanosis, or edema. VASCULAR: 2+ pulses with significant left lower extremity edema. LABORATORY DATA: Reviewed. MEDICATIONS: Reviewed. IMPRESSION: 1. Deep venous thrombosis. 2. Erythrocytosis. 3. Hypertension. 4. Peripheral arterial disease. RECOMMENDATIONS: The patient has significant swelling that has persisted and now has involved his scrotum. We will hold Xarelto and replace him on Lovenox. The patient likely will need catheter-directed care. This likely can take place on Tuesday morning. Barrie Blackwell DO BM/MODL /[id number]
[2018-06-27] VITALS (8 sets, daily range): BP systolic 122–139; BP diastolic 69–88
[2018-06-27] MEDS: MORPHINE SULFATE INJ 4 MG/ML INJ 1ML IV PRN ×4 (06:03→19:45)
[2018-06-27 06:16] LABS: BASOPHILS % 0.6 % (0.0-1.0); EOSINOPHILS # (AUTO) 0.3 (0.0-0.4); HEMATOCRIT 48.4 % (38.2-49.6); HEMOGLOBIN 16.7 g/dL (14.0-18.0); LYMPHOCYTES # (AUTO) 1.6 (1.0-3.2); LYMPHOCYTES % 23.8 % (18.0-39.1); MEAN CORPUSCULAR HEMOGLOBIN 34.1 pg (28-32); MEAN CORPUSCULAR HGB CONC 34.5 g/dL (31-35); MEAN CORPUSCULAR VOLUME 98.8 fL (81-99); MONOCYTES # (AUTO) 0.7 (0.2-0.8); MONOCYTES % 10.1 % (4.4-11.3); NEUTROPHILS # (AUTO) 4.1 (2.1-6.9); NEUTROPHILS % 60.9 % (38.7-80.0); PLATELET COUNT 160 x10e3/uL (140-360); RED CELL DISTRIBUTION WIDTH 12.6 % (11.7-14.4)
--- NOTE | 2018-06-27 06:29 | NUR ---
PT C/O PAIN AND GIVEN ORDERED PAIN MEDICATION AND PT RESTING .PT IS NPO .CALL LIGHT WITH IN REACH
[2018-06-27 06:40] LABS: ANION GAP 11.4 mmol/L (8-16); BLOOD UREA NITROGEN 14 mg/dL (7-26); BUN/CREATININE RATIO 13 (6-25); CALCIUM 9.5 mg/dL (8.4-10.2); CARBON DIOXIDE 28 mmol/L (22-29); CHLORIDE 96 mmol/L (98-107); CREATININE, SERUM 1.05 mg/dL (0.72-1.25); EST GLOMERULAR FILTRATION RATE > 60 ML/MIN (60-); GLUCOSE 107 mg/dL (74-118); PHOSPHORUS 3.6 MG/DL (2.3-4.7); POTASSIUM 3.4 mmol/L (3.5-5.1); SODIUM 132 mmol/L (136-145)
--- NOTE | 2018-06-27 07:16 | NUR ---
BEDSIDE REPORT GIVEN TO THE ONCOMING NURSE
--- NOTE | 2018-06-27 07:30 | NUR ---
REC'D PT IN HIGH-FOWLERS, ON RA, NO S/S OF DISTRESS. LT LEG WRAPPED WITH EDUARDO BANDAGE. BED IN LOWEST POSITION, SIDE RAILS UP X2, AND CALL PARRA WITH IN REACH.
[2018-06-27] MEDS: ASPIRIN 81 MG ENTERIC COATED PO SCH (08:33)
[2018-06-27] MEDS: SERTRALINE HCL 50 MG TAB PO SCH (08:34)
[2018-06-27] MEDS: NEBIVOLOL 10 MG TAB PO SCH (08:34)
[2018-06-27] MEDS: HYDROCHLOROTHIAZIDE 25 MG TAB PO SCH (08:34)
[2018-06-27] MEDS: LOSARTAN POTASSIUM 100 MG TAB PO SCH (08:34)
--- NOTE | 2018-06-27 08:55 | NUR ---
PAGED DR. BAILEY TO CLARIFY CONSENT FOR PT.
--- NOTE | 2018-06-27 13:10 | NUR ---
PT IS LAYING IN BED WITH LT LEG POSITIONED STRAIGHT ON PILLOW AND WRAPPED WITH EDUARDO BANDAGE. PAIN LEVEL IMPROVED TO 4/10. NO S/S OF DISTRESS. MOTHER AT BEDSIDE.
--- NOTE | 2018-06-27 14:26 | NUR ---
Nutrition Screen Note RD Recommendation for Physician: -Continue current diet as ordered Plan of Care: RD following, monitoring for tolerance and adequacy Nutrition reason for involvement: LOS Primary Diagnose(s): 1. Deep venous thrombosis. 2. Erythrocytosis. 3. Hypertension. 4. Peripheral arterial disease. PMH: HTN Ht: 73in Wt: 269.25lb BMI: 35.5kg/m2 IBW: 184lb RD Assessment: (06/27) Chart reviewed. Labs and meds reviewed. 43yo M, who was admitted for worsening lower extremity pain and swelling. Visited pt in the room. Pt reported good appetite with 100% recorded meal intake. No GI complains noted. No complains of chewing or swallowing difficulty. 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 Will continue to monitor and follow Current Diet: cardiac diet Malnutrition Evaluation (06/27/2018) The patient does not meet criteria for a specified degree of malnutrition at this time. Will re-evaluate at follow-up as appropriate. Diet Education Needs Assessment: Diet education not indicated. Nutrition Care Level: low Signed: Bernie Hernandez, MS, RD, LD
[2018-06-27] MEDS: FAMOTIDINE 20 MG TAB PO SCH (15:37)
--- NOTE | 2018-06-27 15:37 | NUR ---
PT REQUESTED PAIN MEDICATION FOR LT LEG PAIN OF 08/30. MORPHINE ADMINISTERED. NO S/S OF RESPIRATORY DISTRESS, BED IN LOWEST POSITION, SIDE RAILS UP X2, AND CALL PARRA WITHIN REACH.
[2018-06-27] MEDS ORDERED: ONDANSETRON HCL 4 MG ORAL DISINTEGRATING TAB PO PRN (17:30)
--- NOTE | 2018-06-27 18:27 | NUR ---
PT IS LAYING IN BED WITH NO S/S OF DISTRESS. SIDE RAILS UP X2, BED IN LOWEST POSITION, AND CALL PARRA WITHIN REACH.
--- NOTE | 2018-06-27 18:32 | NUR ---
REPOSITIONED PT UP IN BED. NO S/S OF DISTRESS. O2 RUNNING AT 3L/MIN VIA NC. FAMILY AT BEDSIDE. SIDE RAILS UP X3, BED IN LOWEST POSITION, CALL PARRA WITHIN REACH, AND BED ALARM ON. Addendum: 06/27/18 at 1834 by BRIDGER LIMA RN DOCUMENTED ON WRONG PATIENT.
--- NOTE | 2018-06-27 19:20 | NUR ---
Received patient in report. Patient is A&Ox3. Resting in bed, semi-fowlers. L lower extremity still wrapped in EDUARDO wrap. Lungs clear. Bowel sounds active. Skin intact. No edema noted. R AC 18 g and L AC 18g asymptomatic, intact, and patent. No S&S of distress noted at this time. Bed locked in lowest position. Call light in reach.
[2018-06-27] MEDS ORDERED: KCL 40MEQ/0.9% SOD CHL 1,000 ML IV ONE (19:30)
[2018-06-27] MEDS: CLONIDINE HCL 0.1 MG TAB PO SCH (20:27)
--- NOTE | 2018-06-27 20:37 | Progress Note ---
DATE: SUBJECTIVE: The patient reports progressively worsening left thigh and scrotal swelling. OBJECTIVE: VITAL SIGNS: Temperature is 98.2, heart rate 68, respirations are 20, blood pressure is 132/78, and oxygen saturation 96% on room air. GENERAL: Well appearing, well built, no apparent distress. CARDIOVASCULAR: Regular rate and rhythm. LUNGS: Clear to auscultation. ABDOMEN: Soft, nontender, and nondistended. EXTREMITIES: There is left extremity edema and scrotal swelling. MEDICATIONS: Reviewed. LABORATORY DATA: Reviewed. IMPRESSION: 1. Deep venous thrombosis. 2. Erythrocytosis. 3. Hypertension. 4. Peripheral artery disease. RECOMMENDATIONS: The patient has progressively worsening swelling that has not improved. This is now involving his scrotum. The patient will require venography and possible catheter directed treatment. The cardiac catheterization laboratory is booked up Tuesday morning, so this can be done tomorrow afternoon. DO MARGO Parra/MODL /[id number]
[2018-06-28] VITALS (26 sets, daily range): BP systolic 119–170; BP diastolic 67–100
[2018-06-28] MEDS: MORPHINE SULFATE INJ 4 MG/ML INJ 1ML IV PRN ×4 (04:29→22:30)
--- NOTE | 2018-06-28 07:10 | NUR ---
PATIENT IN BED WITH HEAD OF BED ELEVATED WATCHING TV, NO S/S OF DISTRESS NOTED. EDUARDO WRAP INTACT TO LEFT LEG. BED IN LOWER POSITION, CALL LIGHT AT REACH.
[2018-06-28] MEDS: FAMOTIDINE 20 MG TAB PO SCH ×2 (07:35→16:30)
[2018-06-28] MEDS: HYDROCHLOROTHIAZIDE 25 MG TAB PO SCH (09:00)
[2018-06-28] MEDS: LOSARTAN POTASSIUM 100 MG TAB PO SCH (09:00)
[2018-06-28] MEDS: ASPIRIN 81 MG ENTERIC COATED PO SCH (09:00)
[2018-06-28] MEDS: NEBIVOLOL 10 MG TAB PO SCH (09:00)
[2018-06-28] MEDS: SERTRALINE HCL 50 MG TAB PO SCH (09:00)
[2018-06-28] MEDS ORDERED: LIDOCAINE HCL 2% LOCAL 20 ML VIAL ONE ×2 (09:47→10:40)
[2018-06-28] MEDS ORDERED: FENTANYL CITRATE/PF 100MCG/2 ML INJ ONE (09:47)
[2018-06-28] MEDS ORDERED: MIDAZOLAM HCL 2 MG/2 ML VIAL ONE ×2 (09:47→10:51)
[2018-06-28] MEDS ORDERED: SODIUM CHLORIDE 0.9% 1000ML 1,000 ML ONE (09:48)
[2018-06-28] MEDS ORDERED: IOPAMIDOL 300MG/ML 100 ML INFUS..BTL IV ONE (09:48)
[2018-06-28] MEDS ORDERED: HEPARIN SOD/SOD CHLORIDE 2,000 ML ONE (09:48)
--- NOTE | 2018-06-28 10:17 | NUR ---
PATIENT OFF UNIT FOR A PROCEDURE.
[2018-06-28] MEDS ORDERED: SODIUM CHLORIDE 0.9% IV ONE (11:00)
[2018-06-28] MEDS ORDERED: ALTEPLASE RECOMBINANT IV ONE (11:00)
[2018-06-28] MEDS ORDERED: ALTEPLASE RECOMBINANT 2 MG/2 ML VIAL ONE (11:01)
[2018-06-28] MEDS ORDERED: HEPARIN 25,000U/0.45% NS 250ML 250 ML IV ONE (11:36)
--- NOTE | 2018-06-28 11:47 | NUR ---
1147 Received pt to food production supervisor #10.Left DVT with transfer order to ICU for monitoring Heparin infusing 500u/hr and Tpa at 17cchr Site w/o gross issues of pain or bleeding remains in NSR . Left and right 18g ivs not used and rt 18g ns 800cc clamped. Supv. Tia Rn informed of necessity ICU as well as tele-tracking. Back to baseline Orientation Resp shallow and regular Denies necessity to defecate or urinate. Says has 5/10 pain to left leg reported to Dr Blackwell Morphine 4mg ivpx1 No gross signs pain pallor pr pressure or dysrhythmia. ds\rn
--- NOTE | 2018-06-28 13:10 | NUR ---
1310 F/o tele tracker no ICU bed House Supv. Kenzie DYSON working on bed availability. Had c/o left leg pain was medicated at 147 ivp 4mg Morphine checked pt, states leg pain went from 9/10 to 6/10 Resting quietly. vs stable no gross issues pain,pallor,pressure or bleeding or dysrhythmia. Left 5fr [facility] cath intact with anticoagulation infusion intact and operable via pumps. Heparin 500u/hr and TPA 1mg/hr (15cc/hr) bed in low position call light at bedside. Bed in low position. anne/rod Addendum: 06/28/18 at 2306 by Eboni Abraham RN Note typo to TPA infusion 1mg/hr remained at 17cchr from shift lab technician Scar Dyson hand off report. Multiple supervisors working on bed disposition, continues to remain in shift lab technician holding recovery area till ICU bed available. No changes pt status. Addendum: 06/28/18 at 2338 by Eboni Abraham RN Addendum: correction initial Morphine document 1245 ivp for pain then 1627 additional dose order obtained for Morphine 4mg ivp and was given.per Dr Blackwell order with adequate relief. pain primarly back to positional reasons and inability to move left leg due to anticoagulation infusion to left leg.Palpable pulses to rt leg PT/DP. left leg swollen and discolored slightly, this is an ongoing observation and MD aware does mark adequately and foot warm to touch. ds/rn
[2018-06-28] MEDS ORDERED: MORPHINE SULFATE INJ 4 MG/ML INJ 1ML IV ONE ×2 (14:00→16:45)
--- NOTE | 2018-06-28 14:27 | Progress Note ---
DATE: Cardiology Progress Note SUBJECTIVE: The patient reports persistence of his left lower extremity swelling. OBJECTIVE: VITAL SIGNS: He is afebrile, heart rate is 75, respirations are 18, blood pressure is 132/86, oxygen saturation is 95% on room air. GENERAL: Well appearing, well built, in no apparent distress. CARDIOVASCULAR: Regular rate and rhythm. LUNGS: Clear to auscultation. ABDOMEN: Soft, nontender, and nondistended. EXTREMITIES: Left lower extremity swelling. LABORATORY DATA: Reviewed. CARDIOVASCULAR MEDICATIONS: Reviewed. IMPRESSION: 1. Deep venous thrombosis. 2. Erythrocytosis. 3. Hypertension. 4. Peripheral artery disease. RECOMMENDATIONS: The patient underwent Santiago catheter placement and will receive alteplase at 1 mg/hour until tomorrow afternoon. Continue heparin through the side port of the sheath. The patient received 500 units of heparin through the side port of the sheath. Continue all other cardiovascular medications. DO MARGO Parra/MODL /[id number]
[2018-06-28] MEDS: ALTEPLASE RECOMBINANT IV SCH ×3 (16:00→23:00)
[2018-06-28] MEDS: SODIUM CHLORIDE 0.9% IV SCH ×3 (16:00→23:00)
[2018-06-28] MEDS ORDERED: MORPHINE SULFATE INJ 4 MG/ML INJ 1ML ONE (16:22)
--- NOTE | 2018-06-28 16:27 | NUR ---
1627pm Dr Blackwell re-rounded. Pt checked still awaiting bed disposition to ICU .Re-medicated 4mg ivp Morphine sulfate. Left popliteal cath intact with infusion Heparin 500u/hr and TPA at 1mg/hr(17cc/hr) added new IVPB (double check alert med hang with Aida SANCHEZ)No gross signs of pallor and bleeding. Obtained hamburger for dinner tray. ds/rod
[2018-06-28] MEDS ORDERED: MORPHINE SULFATE 5 MG/ML VIAL IV ONE (16:30)
--- NOTE | 2018-06-28 18:00 | NUR ---
1900p check bed disposition with LAURA Norton. Floor bed being cleaned and 191 to be ready for pt disposition to ICU. No gross signs pain,pallor,pressure or dysrhythmia. Void clear urine output. ds/rn
--- NOTE | 2018-06-28 18:18 | Operative Report ---
DATE OF PROCEDURE: SURGEON: Barrie Blackwell DO PROCEDURES PERFORMED: 1. Conscious sedation, 60 minutes. 2. Unilateral venogram of the left lower extremity. 3. Second order venography. 4. Catheter placement in the inferior vena cava. 5. Transcatheter lysis. PREPROCEDURE DIAGNOSIS: Deep venous thrombosis. POSTPROCEDURE DIAGNOSIS: Deep venous thrombosis. ESTIMATED BLOOD LOSS: Less than 20 mL. SPECIMENS REMOVED: None. PROCEDURE IN DETAIL: After informed consent was obtained, the patient was brought to the cardiac catheterization laboratory in a fasting and nonsedated state. The patient was placed prone on the table. Using ultrasound guidance, the left popliteal vein was accessed via modified Seldinger technique and a 6-Ukrainian sheath was placed. Next, venography revealed significant deep venous thrombosis throughout the left lower extremity. Next, I crossed the thrombus with a [place] [employer] wire and placed a multipurpose catheter up into the inferior vena cava and venography was performed. Next, I inserted a 50 cm working length Santiago infusion catheter. The patient received 2 mg of alteplase. The patient tolerated the procedure well with no immediate complications and transported to the intensive care unit in stable condition. IMPRESSION: Deep venous thrombosis. RECOMMENDATIONS: The patient will receive alteplase through the Santiago catheter at 1 mg/hour until tomorrow afternoon. 500 units of heparin will be infused through the sheath side port. Barrie Blackwell DO BM/MODL /[id number]
--- NOTE | 2018-06-28 19:00 | NUR ---
Shalonda, public improvement inspector working on bed disposition.No gross signs of pain,pallor,pressor or dysrhythmia. ds/rn
--- NOTE | 2018-06-28 20:00 | NUR ---
1999 was medicated with po [place] 5/325 for back pain awaiting disposition for transfer to icu ,monitoring anticoagulation drips till pathology laboratory director fix tomorrow. 2014 report to Ben Dyson and Jyoti Dyson regarding disposition pt to rm 191 when bed ready. No gross issues with pain,pallor,pressure or dysrhythmia. 2044 transported to ICU per bed with RN escort x2 and supervision Ángela DYSON. Hand off with complete report Bedside nurse aware of pt co of leg and back pain. Pt received 100 fentanyl and 4 versed in pathology laboratory director and has ongoing Heparin 500u/hr and TPa at 1mg/hr (17cchr) x2 RN pump verification on transfer. medical staff coordinator aware of pt left leg fix of DVT and will be a reschedule trip to pathology laboratory director approx 2pm tomorrow. 18g x2 site left and rt arms no signs of infiltration and No gross signs of pain,pallor,pressure or dysrhythmia. Pt tolerated x2 meals in pathology laboratory director and voids qs. left pt bedside with RNx2 at bedside and call light at bedside. ds/rod
[2018-06-28] MEDS ORDERED: HYDROCODONE/APAP 5MG-325MG TAB ONE (20:07)
[2018-06-28] MEDS: HYDROCODONE/APAP 5MG-325MG TAB PO PRN (20:19)
[2018-06-28] MEDS: CLONIDINE HCL 0.1 MG TAB PO SCH (22:30)
--- NOTE | 2018-06-28 23:25 | NUR ---
[address] Blackwell via text in regards to any labs need to be drawn for monitoring anticoagulation drips ongoing. He did respond to me and icu staff nurses. I was requested by ICU staff to check left leg dressing. I did observe bedside and visualize slight ooze to posterior dressing to left infusion site behind popliteal area. Icu staff will get labs and continue to monitor. Pt is scheduled for fix of left leg in electroplating laborer approximately 2pm tomorrow. Pt is awake, stable vs and ekg no current complaints pain is managed. anne/rn
[2018-06-29] VITALS (23 sets, daily range): BP systolic 112–170; BP diastolic 79–111
[2018-06-29 00:38] LABS: INR 1.36; PROTHROMBIN TIME 17.4 seconds (11.9-14.5)
[2018-06-29 00:39] LABS: PARTIAL THROMBOPLASTIN TIME 55.4 seconds (23.8-35.5)
[2018-06-29] MEDS: MORPHINE SULFATE INJ 4 MG/ML INJ 1ML IV PRN ×4 (04:25→20:55)
[2018-06-29] MEDS: SODIUM CHLORIDE 0.9% IV SCH ×2 (04:34→11:40)
[2018-06-29] MEDS: ALTEPLASE RECOMBINANT IV SCH ×2 (04:34→11:40)
[2018-06-29 05:01] LABS: BASOPHILS % 0.6 % (0.0-1.0); EOSINOPHILS # (AUTO) 0.2 (0.0-0.4); EOSINOPHILS % 3.3 % (0.0-6.0); HEMATOCRIT 47.2 % (38.2-49.6); HEMOGLOBIN 16.9 g/dL (14.0-18.0); LYMPHOCYTES # (AUTO) 1.5 (1.0-3.2); LYMPHOCYTES % 20.6 % (18.0-39.1); MEAN CORPUSCULAR HEMOGLOBIN 34.1 pg (28-32); MEAN CORPUSCULAR HGB CONC 35.8 g/dL (31-35); MEAN CORPUSCULAR VOLUME 95.4 fL (81-99); MONOCYTES # (AUTO) 0.9 (0.2-0.8); NEUTROPHILS # (AUTO) 4.5 (2.1-6.9); NEUTROPHILS % 62.9 % (38.7-80.0); PLATELET COUNT 131 x10e3/uL (140-360); RED BLOOD COUNT 4.95 x10e6/uL (4.3-5.7); RED CELL DISTRIBUTION WIDTH 12.3 % (11.7-14.4)
[2018-06-29 05:32] LABS: ANION GAP 11.8 mmol/L (8-16); BLOOD UREA NITROGEN 12 mg/dL (7-26); BUN/CREATININE RATIO 15 (6-25); CALCIUM 9.3 mg/dL (8.4-10.2); CARBON DIOXIDE 26 mmol/L (22-29); CHLORIDE 98 mmol/L (98-107); EST GLOMERULAR FILTRATION RATE > 60 ML/MIN (60-); GLUCOSE 119 mg/dL (74-118); PHOSPHORUS 3.8 MG/DL (2.3-4.7); POTASSIUM 3.8 mmol/L (3.5-5.1); SODIUM 132 mmol/L (136-145)
[2018-06-29 05:45] LABS: INR 1.27; PROTHROMBIN TIME 16.5 seconds (11.9-14.5)
[2018-06-29 05:46] LABS: PARTIAL THROMBOPLASTIN TIME 47.3 seconds (23.8-35.5)
[2018-06-29] MEDS: FAMOTIDINE 20 MG TAB PO SCH ×2 (07:58→16:30)
--- NOTE | 2018-06-29 08:00 | NUR ---
patient received awake and alert. see shift assess. TPA and heparin infusing to left calf area per protocol. pulse present by doppler only to left pedal area. pain being controlled well.
[2018-06-29] MEDS: HYDROCHLOROTHIAZIDE 25 MG TAB PO SCH (08:33)
[2018-06-29] MEDS: SERTRALINE HCL 50 MG TAB PO SCH (08:33)
[2018-06-29] MEDS: ASPIRIN 81 MG ENTERIC COATED PO SCH (08:33)
[2018-06-29] MEDS: NEBIVOLOL 10 MG TAB PO SCH (08:33)
[2018-06-29] MEDS: LOSARTAN POTASSIUM 100 MG TAB PO SCH (08:34)
[2018-06-29] MEDS: HYDROCODONE/APAP 5MG-325MG TAB PO PRN ×2 (08:45→18:39)
--- NOTE | 2018-06-29 09:06 | NUR ---
patient NPO now post breakfast for laborer/key man this afternoon
[2018-06-29 12:28] LABS: INR 1.16; PROTHROMBIN TIME 15.4 seconds (11.9-14.5)
[2018-06-29 12:29] LABS: PARTIAL THROMBOPLASTIN TIME 46.2 seconds (23.8-35.5)
[2018-06-29] MEDS ORDERED: SODIUM CHLORIDE 0.9% 1000ML 1,000 ML ONE ×2 (15:30→16:52)
[2018-06-29] MEDS ORDERED: HEPARIN SOD/SOD CHLORIDE 2,000 ML ONE (15:30)
[2018-06-29] MEDS ORDERED: LIDOCAINE HCL 2% LOCAL 20 ML VIAL ONE ×3 (15:30→17:45)
[2018-06-29] MEDS ORDERED: IOPAMIDOL 300MG/ML 100 ML INFUS..BTL IV ONE ×3 (15:30→18:10)
--- NOTE | 2018-06-29 16:22 | NUR ---
patient to cath lab technologist at this time.
[2018-06-29] MEDS ORDERED: FENTANYL CITRATE/PF 100MCG/2 ML INJ ONE (16:31)
[2018-06-29] MEDS ORDERED: MIDAZOLAM HCL 2 MG/2 ML VIAL ONE ×2 (16:31→17:15)
[2018-06-29] MEDS ORDERED: HEPARIN SOD (PORCINE) 5,000 UNIT/ML VIAL ONE (16:52)
--- NOTE | 2018-06-29 20:00 | NUR ---
Dark red bloody urine noted in urinal. Dr. Blackwell notified by charge entry clerk. H/H ordered and done. Per Sandi SANCHEZ MD stated he expected that response.
[2018-06-29 21:02] LABS: HEMOGLOBIN 15.3 g/dL (14.0-18.0)
[2018-06-29] MEDS: CLONIDINE HCL 0.1 MG TAB PO SCH (21:03)
--- NOTE | 2018-06-29 21:05 | Progress Note ---
DATE: Cardiology Progress Note SUBJECTIVE: The patient reports mild improvement in his lower extremity swelling. OBJECTIVE: VITAL SIGNS: Temperature is 98.5, heart rate is 75, respirations are 19, blood pressure is 118/82, oxygen saturation 97% on room air. GENERAL: He is well appearing, well built, no apparent distress. CARDIOVASCULAR: Regular rate and rhythm. LUNGS: Clear to auscultation. ABDOMEN: Soft, nontender, nondistended. EXTREMITIES: Left lower extremity edema. CARDIOVASCULAR MEDICATIONS: Reviewed. TELEMETRY: Monitoring revealed normal sinus rhythm. IMPRESSION: 1. Deep venous thrombosis. 2. Erythrocytosis. 3. Hypertension. 4. Peripheral artery disease. RECOMMENDATIONS: The patient underwent tPA infusion overnight. Repeat venography revealed significant thrombus burden still present. He underwent mechanical thrombectomy with an Angiojet catheter. Residual thrombus was still present at the common iliac, so the patient received an inferior vena cava filter. Continue current cardiovascular medications. Restart anticoagulation tomorrow with Eliquis or Xarelto. Barrie Blackwell DO BM/MODL /[id number]
[2018-06-30] VITALS (19 sets, daily range): BP systolic 97–135; BP diastolic 54–94
--- NOTE | 2018-06-30 00:16 | Operative Report ---
DATE OF PROCEDURE: SURGEON: Barrie Blackwell DO PROCEDURES PERFORMED: 1. Conscious sedation, 60 minutes. 2. Unilateral venogram. 3. Second order venography. 4. IVC catheter placement. 5. Inferior vena cava venography. 6. Mechanical thrombectomy with an Angiojet catheter. 7. IVC filter placement. PREPROCEDURE DIAGNOSIS: Deep venous thrombosis. POSTPROCEDURE DIAGNOSIS: Deep venous thrombosis. PROCEDURE IN DETAIL: After informed consent was obtained, the patient was brought to the cardiac catheterization laboratory in a fasting and nonsedated state. The patient was placed prone on the mini lab operator table. The sheath was exchanged for an 8-Yemeni sheath. Venography revealed mild resolution of his deep venous thrombosis after tPA infusion overnight. The thrombus was crossed with a wire, then I performed mechanical thrombectomy with an 8-Yemeni Angiojet catheter, which restored better flow. I took the catheter in the second order position and venography revealed significant thrombus burden at the iliac vein prior to flow into the IVC. The patient was flipped on the table. His neck was prepped and draped in usual sterile fashion. Using microcatheter, the right internal jugular vein was accessed via the modified Seldinger technique and an 8.4 IVC filter sheath was taken into the inferior vena cava. The IVC filter was deployed in the infrarenal position. The patient tolerated the procedure well with no immediate complications and transported back to his room in stable condition. DO MARGO Parra/MODL /[id number]
[2018-06-30] MEDS: MORPHINE SULFATE INJ 4 MG/ML INJ 1ML IV PRN ×3 (01:33→21:52)
[2018-06-30 03:56] LABS: BASOPHILS # (AUTO) 0.1 (0.0-0.1); BASOPHILS % 0.7 % (0.0-1.0); EOSINOPHILS # (AUTO) 0.3 (0.0-0.4); EOSINOPHILS % 2.7 % (0.0-6.0); HEMATOCRIT 40.3 % (38.2-49.6); HEMOGLOBIN 14.8 g/dL (14.0-18.0); LYMPHOCYTES # (AUTO) 1.1 (1.0-3.2); LYMPHOCYTES % 11.2 % (18.0-39.1); MEAN CORPUSCULAR HEMOGLOBIN 35.1 pg (28-32); MEAN CORPUSCULAR HGB CONC 36.7 g/dL (31-35); MEAN CORPUSCULAR VOLUME 95.5 fL (81-99); MONOCYTES # (AUTO) 1.3 (0.2-0.8); MONOCYTES % 13.4 % (4.4-11.3); NEUTROPHILS # (AUTO) 6.8 (2.1-6.9); NEUTROPHILS % 71.1 % (38.7-80.0); PLATELET COUNT 150 x10e3/uL (140-360); RED BLOOD COUNT 4.22 x10e6/uL (4.3-5.7); RED CELL DISTRIBUTION WIDTH 12.5 % (11.7-14.4)
[2018-06-30 04:07] LABS: PROTHROMBIN TIME 13.7 seconds (11.9-14.5)
[2018-06-30 04:12] LABS: ANION GAP 11.1 mmol/L (8-16); BLOOD UREA NITROGEN 16 mg/dL (7-26); BUN/CREATININE RATIO 13 (6-25); CALCIUM 9.2 mg/dL (8.4-10.2); CARBON DIOXIDE 27 mmol/L (22-29); CHLORIDE 99 mmol/L (98-107); CREATININE, SERUM 1.26 mg/dL (0.72-1.25); EST GLOMERULAR FILTRATION RATE > 60 ML/MIN (60-); GLUCOSE 143 mg/dL (74-118); MAGNESIUM 3.5 MG/DL (1.3-2.1); POTASSIUM 4.1 mmol/L (3.5-5.1); SODIUM 133 mmol/L (136-145)
[2018-06-30] MEDS: HYDROCODONE/APAP 5MG-325MG TAB PO PRN ×3 (06:36→21:40)
[2018-06-30] MEDS: FAMOTIDINE 20 MG TAB PO SCH ×2 (07:48→16:27)
[2018-06-30] MEDS: NEBIVOLOL 10 MG TAB PO SCH (08:46)
[2018-06-30] MEDS: HYDROCHLOROTHIAZIDE 25 MG TAB PO SCH (08:46)
[2018-06-30] MEDS: SERTRALINE HCL 50 MG TAB PO SCH (08:46)
[2018-06-30] MEDS: LOSARTAN POTASSIUM 100 MG TAB PO SCH (08:46)
[2018-06-30] MEDS: ASPIRIN 81 MG ENTERIC COATED PO SCH (08:46)
--- NOTE | 2018-06-30 10:46 | NUR ---
Brielle Adrian to bedside.
[2018-06-30] MEDS ORDERED: TYLENOL WITH C1 EACH PO (10:52)
--- NOTE | 2018-06-30 14:17 | NUR ---
Visit made by the Spiritual Care Department Pastoral Visitor, Carlos Burton. PV provided pastoral presence, hospitality, and supportive listening. Pastoral Visitor informed pt/family of the scope of Assembler [employer]ester Services and availability. [employer] Spiritual Care Department O: [phone] Pager: [phone] ([phone] number calling from)
[2018-06-30] MEDS: RIVAROXABAN 15 MG TABLET PO SCH (17:04)
--- NOTE | 2018-06-30 17:09 | NUR ---
Report given to LAURA Pierre.
--- NOTE | 2018-06-30 17:47 | NUR ---
Received pt from ICU at this time. Pt is aox4 and able to verbalize needs. Denies any pain at this time. Pt is came to floor on telemetry #15 running SR at 79. Leg leg has noted swelling to it at this time. Pt is s/p thrombectomy.
--- NOTE | 2018-06-30 19:00 | NUR ---
patient received awake, alert, lying quietly in bed. no c/o pain noted. left leg remains purple/red and edematous. pm assessment complete. patient instructed to call for assistance when needed.
[2018-06-30] MEDS: CLONIDINE HCL 0.1 MG TAB PO SCH (20:03)
--- NOTE | 2018-06-30 20:44 | Progress Note ---
DATE: SUBJECTIVE: The patient feels better. The left lower extremity is less painful and less swollen. OBJECTIVE: VITAL SIGNS: Temperature 98.4, heart rate 78, respirations 17, blood pressure 118/79, and oxygen saturation 98% on room air. GENERAL: Well appearing, well built, no apparent distress. CARDIOVASCULAR: Regular rate and rhythm. LUNGS: Clear to auscultation. ABDOMEN: Soft, nontender. EXTREMITIES: Left lower extremity edema. LABORATORY DATA: Reviewed. Telemetry monitoring revealed normal sinus rhythm. IMPRESSION: 1. Deep venous thrombosis. 2. Leukocytosis. 3. Hypertension. 4. Peripheral artery disease. RECOMMENDATIONS: The patient's leg edema continues to improve. Restart Xarelto 15 mg b.i.d. for three weeks, then change to 20 mg daily. He is status post IVC filter placement for residual thrombus burden. If the patient is feeling better by tomorrow, he may be discharged from a cardiovascular standpoint. DO MARGO Parra/MARCIEL /[id number]
--- NOTE | 2018-06-30 21:52 | NUR ---
patient medicated with morphine 1 mg ivp for c/o left knee/leg pain 08/30 at this time.
[2018-07-01 01:22] VITALS: BP 105/56
--- NOTE | 2018-07-01 03:00 | NUR ---
0300 labs drawn at this time and sent to lab per orders.
[2018-07-01 03:10] LABS: BASOPHILS # (AUTO) 0.1 (0.0-0.1); BASOPHILS % 0.6 % (0.0-1.0); EOSINOPHILS # (AUTO) 0.3 (0.0-0.4); HEMATOCRIT 40.7 % (38.2-49.6); HEMOGLOBIN 14.6 g/dL (14.0-18.0); LYMPHOCYTES # (AUTO) 1.8 (1.0-3.2); LYMPHOCYTES % 20.9 % (18.0-39.1); MEAN CORPUSCULAR HEMOGLOBIN 34.7 pg (28-32); MEAN CORPUSCULAR HGB CONC 35.9 g/dL (31-35); MEAN CORPUSCULAR VOLUME 96.7 fL (81-99); MONOCYTES # (AUTO) 0.9 (0.2-0.8); MONOCYTES % 10.8 % (4.4-11.3); NEUTROPHILS # (AUTO) 5.6 (2.1-6.9); NEUTROPHILS % 63.9 % (38.7-80.0); PLATELET COUNT 159 x10e3/uL (140-360); RED BLOOD COUNT 4.21 x10e6/uL (4.3-5.7); RED CELL DISTRIBUTION WIDTH 12.5 % (11.7-14.4)
[2018-07-01 03:28] LABS: ANION GAP 13.8 mmol/L (8-16); CALCIUM 9.7 mg/dL (8.4-10.2); CREATININE, SERUM 1.48 mg/dL (0.72-1.25); MAGNESIUM 2.4 MG/DL (1.3-2.1); POTASSIUM 3.8 mmol/L (3.5-5.1)
[2018-07-01 05:28] VITALS: BP 120/57
[2018-07-01] MEDS: MORPHINE SULFATE INJ 4 MG/ML INJ 1ML IV PRN (05:47)
--- NOTE | 2018-07-01 05:47 | NUR ---
patient medicated with morphine 1 mg ivp for c/o left leg/knee pain 08/30 at this time.
[2018-07-01 07:43] VITALS: BP 121/64
[2018-07-01] MEDS: FAMOTIDINE 20 MG TAB PO SCH (08:30)
[2018-07-01 09:00] VITALS: BP 121/64
[2018-07-01] MEDS: LOSARTAN POTASSIUM 100 MG TAB PO SCH (09:15)
[2018-07-01] MEDS: ASPIRIN 81 MG ENTERIC COATED PO SCH (09:15)
[2018-07-01] MEDS: NEBIVOLOL 10 MG TAB PO SCH (09:15)
[2018-07-01] MEDS: SERTRALINE HCL 50 MG TAB PO SCH (09:15)
[2018-07-01] MEDS: HYDROCHLOROTHIAZIDE 25 MG TAB PO SCH (09:15)
[2018-07-01] MEDS: RIVAROXABAN 15 MG TABLET PO SCH (09:15)
[2018-07-01] MEDS ORDERED: XARELTO15 MG PO (10:11)
[2018-07-01 11:59] VITALS: BP 117/67
[2018-07-01] MEDS ORDERED: AMLODIPINE BESY10 MG PO (14:20)
[2018-07-01] MEDS ORDERED: XARELTO20 MG (14:22)
--- NOTE | 2018-07-01 15:18 | NUR ---
Dr. Babita sánchez. Discharge instructions given to patient. Thorough teaching regarding medications. Pt verbalized understanding.
--- NOTE | 2018-07-01 15:43 | Progress Note ---
DATE: Cardiology Progress Note SUBJECTIVE: The patient is overall feeling better, improvement of left lower extremity symptoms. OBJECTIVE: VITAL SIGNS: Temperature is 97.8, heart rate 79, respirations 17, blood pressure is 121/64, and oxygen saturation 96% on room air. GENERAL: Well appearing, well built, in no apparent distress. CARDIOVASCULAR: Regular rate and rhythm. LUNGS: Clear to auscultation. ABDOMEN: Soft, nontender, and nondistended. EXTREMITIES: Left lower extremity swelling. NEUROLOGIC: No focal deficits noted. CARDIOVASCULAR MEDICATIONS: Reviewed. LABORATORY DATA: Reviewed. Kidney function is increased to 1.49. IMPRESSION: 1. Peripheral arterial disease, status post intervention and inferior vena cava filter. 2. Leukocytosis. 3. Hypertension. 4. Peripheral arterial disease. 5. Acute kidney injury. RECOMMENDATIONS: Hold his losartan. Add amlodipine for blood pressure control. Continue Xarelto 15 mg b.i.d. for three weeks, then change to 20 mg daily. His IVC filter will need to be removed at a later date. Ensure adequate oral hydration. The patient may be discharged from a cardiovascular standpoint. Barrie Blackwell DO BM/MODL /[id number]
--- NOTE | 2018-07-01 15:59 | NUR ---
Rounds with Dr. Underwood at this time; Dr. Underwood discussed benefits and risks associated with CT with contrast with possibility of injury to kidney, and possibility of dialysis; The patient and spouse both verbalized understanding of associated risks of procedure and stated, "let's do it". Addendum: 07/01/18 at 1602 by Estee Bal RN entered in error
[2018-07-01 16:00] VITALS: BP 120/64
--- NOTE | 2018-07-01 16:02 | NUR ---
Pt discharged in stable condition with all personal belongings.
--- NOTE | 2018-07-01 22:26 | Discharge Summary ---
ADMISSION DIAGNOSES: Extensive left lower extremity deep venous thrombosis from common femoral vein to femoral vein/popliteal vein, moderate to severe peripheral artery disease, polycythemia, anxiety, and hypertension. DISCHARGE DIAGNOSES: Extensive left lower extremity deep venous thrombosis from common femoral vein to femoral vein/popliteal vein, moderate to severe peripheral artery disease, polycythemia, anxiety, and hypertension, status post thrombectomy, status post IVC filter placement. HISTORY: The patient has a history of hypertension and anxiety. SURGICAL HISTORY: None. FAMILY HISTORY: None. SOCIAL HISTORY: The patient admits to occasional alcohol use. HOSPITAL COURSE: A 43-year-old male complains of left lower extremity swelling that began on Tuesday. By , the swelling and pain worsened and he could not move his toes. He admits to sitting about 6 or 7 hours a day at work for about 5 days a week. His last prolonged trip was 5-6 years ago. He denies family history of clot, smoking and hormone use. On admission, patient was started on heparin. Hematology-Oncology was consulted. Cardiology was also consulted. Chest x-ray was negative. CT of the chest was negative for PE. Lower extremity arterial Doppler showed left lower extremity artery waveforms demonstrate moderate peripheral vascular disease. Venous Doppler of the left lower extremity showed evidence of vein thrombosis in the following areas, acute extensive DVT in the left common femoral vein extending into the left femoral vein and popliteal vein. The patient was initially on heparin, then the patient was taken to laboratory animal care veterinarian and had Santiago infusion catheter placed. The patient was getting alteplase and heparin via the catheter. The patient was then taken back to laboratory animal care veterinarian to have the catheter removed, where Cardiology found little improvement, so he performed a thrombectomy and placed an IVC filter. The patient will discharge home and follow up with Hematology-Oncology for workup for the DVT. For his polycythemia, on admission, he had 1 L of blood taken for therapeutic phlebotomy. The patient will discharge home with Xarelto 15 mg b.i.d. for 21 days. He will follow up with Hematology-Oncology for any refills. He was given Tylenol 3 for pain. He will follow up with primary care in 1-2 weeks. Hematology as discussed and Cardiology as discussed. Vital signs stable. Patient is afebrile. The patient understands discharge instructions and agrees to plan. Dictated by Brielle M Nguyễn, LOT ASSOCIATE MD CADEN Ward/SHIRLEY /[id number]
[2018-07-02] MEDS ORDERED: AMLODIPINE BESYLATE 5 MG TAB PO SCH (09:00)
== END 2018-07-01 15:53 | disposition home or self-care (01) | DRG 271 ==
LOC: ER 12:11 → ERHOLD 14:35 → MED/SURG3 17:20 → ICU 06-28 21:15 → MED/SURG3 06-30 17:36
PROVIDERS: ADMIT Internal Medicine; ATTEND Internal Medicine
PROC: 3E0234Z Introduction of Serum, Toxoid and Vaccine into Muscle, Percutaneous Approach (ICD-10-PCS; 2018-06-26)
PROC: 06H033Z Insertion of Infusion Device into Inferior Vena Cava, Percutaneous Approach (ICD-10-PCS; 2018-06-28)
PROC: 3E03317 Introduction of Other Thrombolytic into Peripheral Vein, Percutaneous Approach (ICD-10-PCS; 2018-06-28)
PROC: B5191ZZ Fluoroscopy of Inferior Vena Cava using Low Osmolar Contrast (ICD-10-PCS; 2018-06-28)
PROC: 06CN3ZZ Extirpation of Matter from Left Femoral Vein, Percutaneous Approach (ICD-10-PCS; principal; 2018-06-29)
PROC: 06H03DZ Insertion of Intraluminal Device into Inferior Vena Cava, Percutaneous Approach (ICD-10-PCS; 2018-06-29)
PROC: B5191ZZ Fluoroscopy of Inferior Vena Cava using Low Osmolar Contrast (ICD-10-PCS; 2018-06-29)
PROC: 3E03317 Introduction of Other Thrombolytic into Peripheral Vein, Percutaneous Approach (ICD-10-PCS; 2018-06-29)
DX: I82.412 Acute embolism and thrombosis of left femoral vein (principal); N17.9 Acute kidney failure, unspecified; E87.1 Hypo-osmolality and hyponatremia; D68.59 Other primary thrombophilia; I82.432 Acute embolism and thrombosis of left popliteal vein; I82.422 Acute embolism and thrombosis of left iliac vein; I82.442 Acute embolism and thrombosis of left tibial vein; I73.9 Peripheral vascular disease, unspecified; D75.1 Secondary polycythemia; F41.9 Anxiety disorder, unspecified; I10 Essential (primary) hypertension; E87.6 Hypokalemia; Z23 Encounter for immunization; D72.829 Elevated white blood cell count, unspecified; Z79.01 Long term (current) use of anticoagulants
CPT/HCPCS: 36010; 36012; 36415; 37191; 37212; 37213; 71045; 71260; 75820; 80048; 80053; 81001; 81220; 81241; 82550; 82553; 82668; 82728; 83036; 83540; 83735; 83880; 84100; 84439; 84443; 84466; 84484; 85014; 85018; 85025; 85300; 85302; 85303; 85305; 85306; 85384; 85610; 85730; 87040; 87086; 90732; 93005; 93926; 93971; 99284; C1757; C1766; C1769; J0360; J1644; J1650; J2001; J2250; J2270; J2405; J2997; J7030; Q9967